=== PATIENT | female | born 1985 | race Two or more races ===

== ENCOUNTER 2020-11-06 01:08 | Emergency (ER) | payer MEDICAID ==
[~2020-11-06] VITALS: Ht 172.7 cm; Wt 64.0 kg
[2020-11-06] MEDS ORDERED: SODIUM CHLORIDE 0.9% 1,000 ML IV ONE (02:15)
[2020-11-06] MEDS ORDERED: FAMOTIDINE 20MG/2ML VIAL IV ONE (02:15)
[2020-11-06 03:01] LABS: BASOPHILS % 0.9 % (0.0-2.0); EOSINOPHILS % 1.8 % (0.0-5.0); HEMATOCRIT. 40.2 % (36.0-48.0); HEMOGLOBIN. 13.8 g/dL (12.0-16.0); LYMPHOCYTES % 19.5 % (20.0-50.0); MEAN CORPUSCULAR HEMOGLOBIN 30.8 pg (28.0-32.0); MEAN CORPUSCULAR VOLUME 89.3 fL (81.0-99.0); MEAN PLATELET VOLUME 8.1 fl (7.4-10.4); MONOCYTES % 7.6 % (2.0-8.0); NEUTROPHILS % 70.2 % (40.0-76.0); PLATELET 237 x1000/uL (130-400); RED CELL DISTRIBUTION WIDTH 18.1 % (11.6-14.6)
[2020-11-06 03:05] LABS: CHLORIDE 102 mEq/L (98-107)
[2020-11-06 03:08] LABS: HCG SCREEN NEGATIVE
[2020-11-06 03:24] LABS: CLARITY URINE CLOUDY (CLEAR); COLOR URINE YELLOW (YELLOW); KETONES URINE 1+ (NEGATIVE); LEUKOCYTE ESTERASE URINE NEGATIVE (NEGATIVE); NITRITE URINE POSITIVE (NEGATIVE); OCCULT BLOOD URINE 1+ (NEGATIVE); PROTEIN URINE 1+ (NEGATIVE); SPECIFIC GRAVITY URINE 1.015 (1.005-1.030); UROBILINOGEN URINE 0.2 E.U./dL (0.2-1.0)
[2020-11-06] MEDS ORDERED: CEFTRIAXONE 1 G PREMIX 50 ML IV ONE (03:45)
[2020-11-06] MEDS ORDERED: FAMO-135 MT (04:52)
[2020-11-06] MEDS ORDERED: CEPH500T MT (04:52)
[2020-11-06 05:30] VITALS: BP 122/89
== END 2020-11-06 05:49 | disposition home or self-care (01) ==
LOC: ER 01:08
DX: N39.0 Urinary tract infection, site not specified (principal); R11.2 Nausea with vomiting, unspecified
CPT/HCPCS: 36415; 80053; 81003; 81025; 83690; 84703; 85025; 96361; 96365; 96375; 99284; J0696; J3490; J7030